=== PATIENT | female | born 1935 | race Caucasian/White ===

== ENCOUNTER 2021-06-24 08:05 | Emergency (ER) | payer MEDICARE ==
[~2021-06-24] VITALS: Ht 162.6 cm; Wt 54.4 kg
[2021-06-24] MEDS ORDERED: TDAP DIPH,PERTUSS,TET VAC/PF 0.5 ML DISP.SYRIN IM ONE ×2 (08:45→09:00)
--- NOTE | 2021-06-24 09:12 | NUR ---
Patient is being seen by . Garret vaccine consented and administered. Wound care by
--- NOTE | 2021-06-24 09:25 | NUR ---
Sterile 4 x 4 with coban applied to wound. Extra dressings given to patient with instructions from MD. HORAN and follow up instructions given and explained to patient who states she understands all instructions
== END 2021-06-24 09:27 | disposition home or self-care (01) ==
LOC: ER 08:05
DX: S81.811A Laceration without foreign body, right lower leg, initial encounter (principal); W22.09XA Striking against other stationary object, initial encounter; Y92.89 Other specified places as the place of occurrence of the external cause; J45.909 Unspecified asthma, uncomplicated
CPT/HCPCS: 90715; A4663